=== PATIENT | male | born 1975 | race African-American/Black ===

== ENCOUNTER 2016-10-23 08:25 | Inpatient (IN) ==
[2016-10-23] MEDS ORDERED: SODIUM CHLORIDE 0.9% 1,000 ML IV STA (09:26)
[2016-10-23] MEDS ORDERED: INSULIN REGULAR 100 UNIT/ML IV STA (09:26)
[2016-10-23 09:40] LABS: Allen Test Positive; Pt O2 Delivery Device Room Air
[2016-10-23 09:42] LABS: ABG Base Excess -3.3 MMOL/L (-2.5-2.5); ABG HCO3 21.2 MMOL/L (20-26); ABG PH 7.377 (7.35-7.45); ABG PO2 78.1 MM HG (80-95); ABG TCO2 22.4 MMOL/L (23-27)
[2016-10-23] MEDS ORDERED: INSULIN REGULAR 100 UNIT/ML ONE (10:09)
[2016-10-23 10:15] LABS: Basophils % 0.2 % (0.0-0.8); Eosinophils # 0.1 10*3/uL (0.0-0.87); Eosinophils % 1.3 % (0.00-10.9); Hematocrit 43.3 VOL% (42.0-52.0); Hemoglobin 15.3 GM/DL (14.0-18.0); Immature Granulocytes % 0.6 %; Immature Granulocytes Absolute 0.03 #; Lymphocytes # 1.7 10*3/uL (1.4-4.0); Lymphocytes % 36.7 % (21.2-54.2); Mean Corpuscular HGB Conc 35.3 GM/DL (32-36); Mean Corpuscular Hemoglobin 32 PG (27-34); Mean Corpuscular Volume 89.1 FL (87-102); Mean Platelet Volume 11.7 FL (9.6-12.0); Monocytes # 0.3 10*3/uL (0.11-0.8); Monocytes % 7.1 % (1.7-12.7); Neutrophils # 2.5 10*3/uL (1.4-7.4); Neutrophils % 54.1 % (38.7-73.9); Platelet Count 194 T/CUMM (130-400); Red Blood Count 4.86 MC/CUMM (3.8-5.5); Red Cell Distribution Width 13.1 % (9.3-17.3); White Blood Count 4.7 T/CUMM (4-12)
[2016-10-23 10:18] LABS: Apearance,Urine CLEAR (Clear); Bilirubin,Urine Negative (Negative); Blood, Urine Negative (Negative); Glucose,Urine (UA) >=500 mg/dL (Negative); Ketones,Urine 20 mg/dL (Negative); Nitrite,Urine Negative (Negative); Protein,Urine 30 MG/DL; Urine Color Yellow (Yellow); Urine Specific Gravity 1.038 (1.001-1.035); Urine Urobilinogen < 2.0 EU/DL (0.2-1.0); WBC,Urine <1 /HPF (0-6)
--- NOTE | 2016-10-23 10:30 | Emergency Department Note ---
Dion Lawrence Brittany, am scribing for, and in the presence of, Jesica Sierra DO 09: 54. IRigo Debra, DO, personally performed the services described in this documentation, ascribed by Cherelle Ashley in my presence, and it is both accurate and complete . Arrival - Arrival Chief Complaint: Non-Specific Stated Complaint: Blood sugar 400 ED Nursing Triage Note: Patient to triage with c/o being thristy and frequent urination. Patients sister checked blood sugar at home and it was over 400. Patient does not have DM that he knows of. Patients blood sugar is 342 at time of tirage. Mode of Arrival: Ambulatory Limitations: No Limitations Source: Family - History of Present Illness HPI Narrative: This is a 41 y/o obese black male, who presents to the ED for further evaluation of possible diabetes. His sister states pt's Sx of polyuria and polydipsia have been ongoing for the past 1 week. He denies having a personal Hx of diabetes, but notes a family medical Hx of diabetes. His sister states she checked pt's BS while at home which was over 400. While in [facility], pt's BS was 342. Pt denies any fever, chills, chest pain, abdominal pain, or vomiting, but notes dizziness and nausea. Pt has no other complaints/pain in the ED at this time. Pt denies a PMHx. Pt denies a surgical Hx. Pt has a family medical Hx of diabetes. Pt denies the use of tobacco products and alcohol but uses marijuana. Onset (ago): week(s) (Started last week) Consistency: constant Severity: moderate Allergies/Adverse Reactions: Allergies Allergy/AdvReac Type Severity Reaction Status Date / Time No Known Allergies Allergy Unverified 10/23/16 08:37 Review of System - Review of System 12 point system: reviewed and no additional remarkable complaints except as stated - Review of System Constitutional: Absent: chills, fever Cardiovascular: Absent: chest pain Gastrointestinal: Present: nausea. Absent: abdominal pain, vomiting Neurological: Present: vertigo (Dizziness) Endocrine: Present: polydipsia, polyuria Medical,Surgical,& Family Hx - Family History Family History: Reports;: Family Diabetes - Social History Smoking Status: Smoker, status unknown Frequency of Alcohol Use: None Type of Drug Use: Marijuana Exam Vital Signs: Vital Signs Temperature 96.9 F L 10/23/16 08:45 Pulse Rate 97 H 10/23/16 08:45 Respiratory Rate 18 10/23/16 08:57 Blood Pressure 141/106 10/23/16 08:45 O2 Sat by Pulse Oximetry 97 10/23/16 08:33 - General General appearance: alert, in no apparent distress, obese - Head Head exam: Present: atraumatic, normocephalic, normal inspection - Eye Eye exam: Present: normal appearance, PERRL, EOMI. Absent: nystagmus - ENT ENT exam: Present: mucous membranes dry. Absent: mucous membranes moist - Neck Neck exam: Present: normal inspection, full ROM, trachea midline. Absent: tenderness - Chest Chest inspection: Present: normal inspection, symmetric chest wall rise. Absent : tenderness - Respiratory Respiratory exam: Present: normal lung sounds bilaterally. Absent: respiratory distress - Cardiovascular Cardiovascular exam: Present: regular rate, normal rhythm, normal heart sounds - Abdominal Exam Abdominal exam: Present: soft, normal bowel sounds. Absent: distention, tenderness, guarding, rebound, rigidity - Rectal Exam Rectal exam: Present: deferred - Extremities Exam Extremities exam: Present: normal inspection, full ROM, normal capillary refill. Absent: pedal edema, joint swelling - Back Exam Back exam: Present: normal inspection, full ROM. Absent: tenderness, muscle spasm, rashes - Neurological Exam Neurological exam: Present: alert, oriented X3, CN II-XII intact. Absent: motor sensory deficit - Psychiatric Psychiatric exam: Present: normal affect, normal mood. Absent: depressed, agitated, anxious, manic - Skin Skin exam: Present: warm, dry, intact, normal color. Absent: rash, cyanosis, diaphoresis, erythema, pallor, mottled Course Course Narrative: Spoke with Isa on the hospitalist service patient will be admitted for DKA. Awaiting blood sugar Accu-Cheks to determine whether or not we need to start on insulin drip. Patient was given 8 of insulin and a liter of fluids while awaiting labs Results - Labs CBC & BMP: 10/23/16 09:52 10/23/16 09:52 Lab Results: I have reviewed the patients labs Labs: Laboratory Tests 10/23/16 10/23/16 10/23/16 09:34 09:52 09:52 WBC 4.7 RBC 4.86 Hgb 15.3 Hct 43.3 MCV 89.1 MCH 32 MCHC 35.3 RDW 13.1 Plt Count 194 MPV 11.7 Neut % (Auto) 54.1 Lymph % (Auto) 36.7 [place] % (Auto) 7.1 Eos % (Auto) 1.3 Baso % (Auto) 0.2 Neut # (Auto) 2.5 Lymph # (Auto) 1.7 [place] # (Auto) 0.3 Eos # (Auto) 0.1 Baso # (Auto) 0.0 Immature Gran % 0.6 Nucleated RBC % 0.0 Immature Gran # 0.03 Nucleated RBCs # 0.00 Immature Plt Fraction 0.0 ABG pH 7.377 ABG pCO2 37.0 ABG pO2 78.1 L ABG HCO3 21.2 ABG Total CO2 22.4 L ABG O2 Saturation 96.0 ABG Base Excess -3.3 L FiO2 21.00 Sodium Potassium Chloride Carbon Dioxide Anion Gap BUN Creatinine GFR Calculation BUN/Creatinine Ratio Glucose Calculated Osmolality Calcium Total Bilirubin AST ALT Alkaline Phosphatase Total Protein Albumin Globulin Albumin/Globulin Ratio b-Hydroxybutyric mmol/L 0.9 H Urine Color Yellow Urine Appearance Clear Urine pH 5.0 Ur Specific [place] 1.038 H Urine Protein 30 Urine Glucose (UA) >=500 Urine Ketones 20 Urine Blood Negative Urine Nitrate Negative Urine Bilirubin Negative Urine Urobilinogen < 2.0 H Urine Leukocytes Negative Urine WBC <1 Ur Culture Indicated? Not indicated 10/23/16 09:52 WBC RBC Hgb Hct MCV MCH MCHC RDW Plt Count MPV Neut % (Auto) Lymph % (Auto) [place] % (Auto) Eos % (Auto) Baso % (Auto) Neut # (Auto) Lymph # (Auto) [place] # (Auto) Eos # (Auto) Baso # (Auto) Immature Gran % Nucleated RBC % Immature Gran # Nucleated RBCs # Immature Plt Fraction ABG pH ABG pCO2 ABG pO2 ABG HCO3 ABG Total CO2 ABG O2 Saturation ABG Base Excess FiO2 Sodium 133 L Potassium 4.1 Chloride 101 Carbon Dioxide 26 Anion Gap 10.1 BUN 11 Creatinine 1.20 GFR Calculation 139 BUN/Creatinine Ratio 9.00 Glucose 415 H Calculated Osmolality 282.4 Calcium 8.9 Total Bilirubin 0.60 AST 44 H ALT 53 Alkaline Phosphatase 168 H Total Protein 8.5 H Albumin 4.2 Globulin 4.3 H Albumin/Globulin Ratio 0.9 L b-Hydroxybutyric mmol/L Urine Color Urine Appearance Urine pH Ur Specific [place] Urine Protein Urine Glucose (UA) Urine Ketones Urine Blood Urine Nitrate Urine Bilirubin Urine Urobilinogen Urine Leukocytes Urine WBC Ur Culture Indicated? Disposition Clinical Impression: DKA (diabetic ketoacidoses), Hyperglycemia Case discussed with: patient, patient's family Disposition: Still a Patient Condition: Stable Time of Disposition: 11:00
[2016-10-23 10:50] LABS: Albumin 4.2 G/DL (3.4-5.0); Bilirubin,Total 0.6 MG/DL (0.2-1.0); Calcium 8.9 MG/DL (8.5-10.1); Osmolality,Calculated 282.4 MOS/KG (273-304); Potassium 4.1 MMOL/L (3.5-5.1); Total Protein 8.5 G/DL (6.4-8.3)
--- NOTE | 2016-10-23 11:47 | Hospitalist History & Physical ---
Assessment and Plan (1) Hyperglycemia Status: Acute Assessment and plan: Pt's blood sugar 415. Pt given IV insulin in ED. Accuchecks ACHS. SSI. Start patient on po agents. Consult diabetes educators. Diabetic diet. Stat A1c. Current Visit: Yes (2) Hypertension Status: Acute Assessment and plan: Monitored bed. Pt. will be start on po agent. Order hydralazine IV prn. Current Visit: Yes History of Present Illness Chief complaint: polyuria, polydipsia History of present illness: Mr. Chaves is a 41 year old black male with no known medical history that presented to the ED today for further evaluation of high blood sugar, frequent thirst, and frequent urination. Patient is accompanied by sister who is present at the bedside. Patient reports that for the last 2 weeks he has been experiencing polyuria and polydipsia. Patient also reports blurry vision, being dizzy and nauseous almost to the point of passing out. Patient denies fever, chills, chest pain, abdominal pain, or vomiting. Patient's sister states that after hearing his symptoms she decided that she would take his blood sugar. Pt' s blood sugar was over 400. Patient denies any diagnosis of diabetes but reports a family history. Pt. also denies alcohol or tobacco use but reports use of occasional marijuana. In ED patient's blood sugar was noted to be 342. Pt. was also found to be hypertensive. Pt will be admitted to the hospitalist service for further evaluation. Home Medications Medication Instructions Recorded Confirmed Type No Known Home Medications [No 10/23/16 10/23/16 History Known Home Medications] Allergies Allergy/AdvReac Type Severity Reaction Status Date / Time No Known Allergies Allergy Verified 10/23/16 11:33 Medical,Surgical,& Family Hx - Family History Family History: Reports;: Family Diabetes - Social History Smoking Status: Smoker, status unknown Frequency of Alcohol Use: None Type of Drug Use: Marijuana Marital Status: Single Lives With:: aunt Functional capacity: independent ambulation - Constitutional Constitutional: Absent: chills, fever(s), weakness - EENT Eyes: Present: blurry vision Ears: Absent: decreased hearing Nose, mouth and throat: Absent: dysphagia, headache(s) - Cardiovascular Cardiovascular: Absent: chest pain at rest, dyspnea, edema - Respiratory Respiratory: Absent: cough - Gastrointestinal Gastrointestinal: Present: nausea. Absent: abdominal pain, vomiting - Genitourinary Genitourinary: Present: urinary frequency. Absent: difficulty urinating, hematuria - Musculoskeletal Musculoskeletal: Absent: back pain - Neurological Neurological: Present: dizziness. Absent: confusion - Endocrine Endocrine: Present: fatigue, polydipsia, polyuria Exam - Constitutional Vitals: Period Temp Pulse Resp BP Sys/Bowers Pulse Ox Last 24 Hr 96.9 F-96.9 F 97-97 16-18 141-141/106-106 97 General appearance: no acute distress, morbidly obese - Head Head exam: Present: normal inspection, normocephalic - Eye Eye exam: Present: EOMI. Absent: scleral icterus Pupils: Present: ALYSSA - Neck Neck exam: Present: normal inspection - Respiratory Respiratory exam: Present: clear to auscultation bilaterally. Absent: wheezes - Cardiovascular Cardiovascular exam: Present: regular rate and rhythm - GI/Abdominal GI/Abdominal exam: Present: normal bowel sounds, soft. Absent: tenderness - Extremities Exam Extremities exam: Present: normal capillary refill, full ROM. Absent: edema - Neurological Exam Neurological exam: Present: alert, oriented X3 - Psychiatric Psychiatric exam: Present: normal affect, normal mood - Skin Skin exam: Present: normal color, warm, dry Results - Labs CBC & BMP: 10/23/16 09:52 10/23/16 09:52 Lab Results: I have reviewed the past 24 hour labs
[2016-10-23] MEDS ORDERED: SODIUM CHLORIDE 0.9% 1,000 ML IV ONE (11:50)
[2016-10-23] MEDS ORDERED: DEXTROSE 50% 25 GM/50 ML SYRINGE IV PRN (12:40)
[2016-10-23] MEDS ORDERED: GLUCAGON 1 MG VIAL IM PRN (12:40)
[2016-10-23] MEDS ORDERED: hydrALAZINE 25 MG TABLET PO PRN (12:40)
[2016-10-23] MEDS ORDERED: ACETAMINOPHEN 325 MG TABLET PO PRN (12:40)
[2016-10-23] MEDS ORDERED: ALBUTEROL 2.5 MG/3 ML NEB RESP TX PRN (12:40)
[2016-10-23] MEDS: SODIUM CHLORIDE 0.9% 1,000 ML IV SCH ×2 (14:25→20:15)
[2016-10-23] MEDS: LISINOPRIL/HCTZ 20-12.5 MG TABLET PO SCH (14:25)
[2016-10-23] MEDS: INSULIN LISPRO 100 UNIT/ML SUBCUT SCH ×2 (16:41→20:14)
[2016-10-23] MEDS: metFORMIN 500 MG TABLET PO SCH (16:42)
[2016-10-24 06:06] LABS: Basophils % 0.4 % (0.0-0.8); Eosinophils # 0.1 10*3/uL (0.0-0.87); Eosinophils % 1.2 % (0.00-10.9); Hematocrit 39.7 VOL% (42.0-52.0); Hemoglobin 13.8 GM/DL (14.0-18.0); Immature Granulocytes % 0.4 %; Immature Granulocytes Absolute 0.02 #; Lymphocytes # 2.4 10*3/uL (1.4-4.0); Lymphocytes % 43.1 % (21.2-54.2); Mean Corpuscular HGB Conc 34.8 GM/DL (32-36); Mean Corpuscular Hemoglobin 31 PG (27-34); Mean Corpuscular Volume 90.4 FL (87-102); Mean Platelet Volume 11.9 FL (9.6-12.0); Monocytes # 0.4 10*3/uL (0.11-0.8); Monocytes % 7.6 % (1.7-12.7); Neutrophils # 2.7 10*3/uL (1.4-7.4); Neutrophils % 47.3 % (38.7-73.9); Platelet Count 161 T/CUMM (130-400); Red Blood Count 4.39 MC/CUMM (3.8-5.5); Red Cell Distribution Width 13.3 % (9.3-17.3); White Blood Count 5.7 T/CUMM (4-12)
[2016-10-24] MEDS: SODIUM CHLORIDE 0.9% 1,000 ML IV SCH ×3 (06:10→20:07)
[2016-10-24 06:34] LABS: Albumin 3.6 G/DL (3.4-5.0); Bilirubin,Total 0.6 MG/DL (0.2-1.0); Potassium 4.4 MMOL/L (3.5-5.1); Risk Ratio 6.46; Thyroid Stimulating Hormone 1.23 uIU/ml (0.358-3.74); Total Protein 6.8 G/DL (6.4-8.3); VLDL CHOLESTEROL 120.8 MG/DL
[2016-10-24] MEDS: LISINOPRIL/HCTZ 20-12.5 MG TABLET PO SCH (09:06)
[2016-10-24] MEDS: metFORMIN 500 MG TABLET PO SCH ×2 (09:07→17:21)
[2016-10-24] MEDS: PANTOPRAZOLE 40 MG TABLET PO SCH (09:07)
[2016-10-24] MEDS: INSULIN LISPRO 100 UNIT/ML SUBCUT SCH ×4 (09:08→20:20)
--- NOTE | 2016-10-24 12:33 | Hospitalist Progress Note ---
Hospitalist: Subjective Interval history: 41-year-old male with new onset diabetes. Patient reports that his blurry vision, polyuria and polydipsia are better, but his sugars are still elevated. Exam - Constitutional Vitals: Period Temp Pulse Resp BP Sys/Bowers Pulse Ox Last 24 Hr 96.5 F-98.4 F 78-95 16-20 114-142/67-82 92-98 Results - Labs CBC & BMP: 10/24/16 05:02 10/24/16 05:02 Lab Results: I have reviewed the past 24 hour labs - Impressions New onset diabetes mellitus type 2 Status: Acute Assessment and plan: Patient is on metformin, Accu-Cheks are still running in 300s, he has been started on glyburide 10/24. Hemoglobin A1c was 10.6. He received diabetic education emphasis on proper diet, importance of taking medications and regular follow-ups with primary care physician. He states that he will find a primary care provider. We will continue to adjust his diabetes medications based on his Accu-Cheks. Current Visit: Yes Ess Hypertension Status: Acute Assessment and plan: Blood pressures quite well controlled on lisinopril and hydrochlorothiazide combination, will continue. Current Visit: Yes Hypertriglyceridemia Status: Acute Assessment and plan: Due to uncontrolled diabetes, started on fish oil 10/24 Current Visit: Yes Dehydration due to uncontrolled diabetes Status: Acute Assessment and plan: Continue IV fluids, this is improving. Current Visit: Yes Morbid obesity Status: Chronic Assessment and plan: Patient's BMI is 49. I have educated him regarding importance of exercise, losing weight and maintain his body weight around his ideal body weight 10/24 Current Visit: Yes
[2016-10-24] MEDS: glyBURIDE 5 MG TABLET PO SCH (17:17)
[2016-10-24] MEDS: OMEGA 3 ACID ETHYL ESTERS 1 GM CAPSULE PO SCH (20:21)
[2016-10-25 05:48] LABS: Basophils % 0.2 % (0.0-0.8); Eosinophils # 0.1 10*3/uL (0.0-0.87); Eosinophils % 1.3 % (0.00-10.9); Hematocrit 37.1 VOL% (42.0-52.0); Immature Granulocytes % 0.6 %; Immature Granulocytes Absolute 0.03 #; Lymphocytes # 1.8 10*3/uL (1.4-4.0); Mean Corpuscular Hemoglobin 32 PG (27-34); Mean Corpuscular Volume 90.5 FL (87-102); Mean Platelet Volume 11.9 FL (9.6-12.0); Monocytes # 0.4 10*3/uL (0.11-0.8); Monocytes % 7.7 % (1.7-12.7); Neutrophils # 2.4 10*3/uL (1.4-7.4); Neutrophils % 51.2 % (38.7-73.9); Platelet Count 154 T/CUMM (130-400); Red Cell Distribution Width 13.4 % (9.3-17.3); White Blood Count 4.7 T/CUMM (4-12)
[2016-10-25 06:17] LABS: Albumin 3.3 G/DL (3.4-5.0); Bilirubin,Total 0.7 MG/DL (0.2-1.0); Calcium 8.3 MG/DL (8.5-10.1); Osmolality,Calculated 278.8 MOS/KG (273-304); Potassium 4.5 MMOL/L (3.5-5.1); Total Protein 6.3 G/DL (6.4-8.3)
[2016-10-25] MEDS: OMEGA 3 ACID ETHYL ESTERS 1 GM CAPSULE PO SCH (09:27)
[2016-10-25] MEDS: LISINOPRIL/HCTZ 20-12.5 MG TABLET PO SCH (09:28)
[2016-10-25] MEDS: metFORMIN 500 MG TABLET PO SCH (09:28)
[2016-10-25] MEDS: PANTOPRAZOLE 40 MG TABLET PO SCH (09:28)
[2016-10-25] MEDS: glyBURIDE 5 MG TABLET PO SCH (09:28)
[2016-10-25] MEDS: INSULIN LISPRO 100 UNIT/ML SUBCUT SCH ×2 (09:29→13:02)
[2016-10-25] MEDS: SODIUM CHLORIDE 0.9% 1,000 ML IV SCH ×2 (11:05→13:01)
--- NOTE | 2016-10-25 11:50 | Discharge Summary ---
Hospital Course - Hospital Course Hospital Course: Mr. Chaves is a 41 year old black male with no known medical history that presented to the ED on 10/23 for further evaluation of high blood sugar, frequent thirst, and frequent urination. Patient reported that for the last 2 weeks he had been experiencing polyuria and polydipsia. Patient also reported blurry vision, being dizzy and nauseous almost to the point of passing out. Patient's sister took his blood sugar and it was over 400. In ED patient's blood sugar was noted to be 342. Pt. was also found to be hypertensive. Pt was admitted to the hospitalist service for further evaluation of treatment of new onset diabetes. Pt's blood sugars were treated with sliding scale insulins and po metformin. Pt. was also started on glyburide. Education was provided for smoking cessation. Pt's blood sugars improved. Elevated blood sugars were controlled. Pt. is stable to be discharged home. Pt. has been instructed on importance of securing PCP and following up within 1-2 weeks. - Time spent with patient Time with patient DS: Greater than 30 minutes Time spent discussing smoking cessation with patient: more than 10 minutes Diagnosis - Discharge Diagnosis (1) Hyperglycemia Status: Acute (2) Hypertension Status: Resolved Specialty Discharge - Follow Up or Referrals - Speciality Discharge Instructions Hospitalist Instructions: Please secure primary care provider. Follow up in 1-2 weeks for evaluation of diabetes. Discharge Plan - Discharge Data Disposition: Disch To Home/Self Care Condition at Discharge: Stable Discharge Diet: diabetic diet Activity: no restrictions, other (Pt. encouraged to exercise) Hygiene: no restrictions Weight Bearing at Discharge: full weight bearing Driving: no restrictions Contact your physician if you experience:: fever over 101, Difficulty voiding, Redness or swelling, Nausea/Vomiting, Shortness of breath - Discharge Medications No Action No Known Home Medications [No Known Home Medications] - Follow Up or Referral - Forms/Instructions Exam - Constitutional Vitals: Period Temp Pulse Resp BP Sys/Bowers Pulse Ox Last 24 Hr 96.7 F-97.7 F 80-85 18-21 118-133/76-87 96-100 General appearance: no acute distress, over weight - Head Head exam: Present: normal inspection, normocephalic - Eye Eye exam: Present: EOMI Pupils: Present: ALYSSA - Neck Neck exam: Present: normal inspection - Respiratory Respiratory exam: Present: clear to auscultation bilaterally. Absent: wheezes - Cardiovascular Cardiovascular exam: Present: regular rate and rhythm - GI/Abdominal GI/Abdominal exam: Present: normal bowel sounds, soft. Absent: tenderness - Extremities Exam Extremities exam: Present: normal capillary refill, full ROM, edema - Neurological Exam Neurological exam: Present: alert, oriented X3 - Psychiatric Psychiatric exam: Present: normal affect, normal mood - Skin Skin exam: Present: normal color, warm, dry Discharge Results Labs on day of discharge: Labs from last 24 hours 10/25/16 10/25/16 10/25/16 11:24 07:18 05:11 WBC RBC Hgb Hct MCV MCH MCHC RDW Plt Count MPV Neut % (Auto) Lymph % (Auto) [place] % (Auto) Eos % (Auto) Baso % (Auto) Neut # (Auto) Lymph # (Auto) [place] # (Auto) Eos # (Auto) Baso # (Auto) Immature Gran % Nucleated RBC % Immature Gran # Nucleated RBCs # Immature Plt Fraction Sodium 137 Potassium 4.5 Chloride 105 Carbon Dioxide 26 Anion Gap 10.5 BUN 8 Creatinine 0.90 GFR Calculation 197 BUN/Creatinine Ratio 8.00 Glucose 251 H POC Glucose 314 H 281 H Calculated Osmolality 278.8 Calcium 8.3 L Total Bilirubin 0.70 AST 30 ALT 35 Alkaline Phosphatase 118 H Total Protein 6.3 L Albumin 3.3 L Globulin 3.0 Albumin/Globulin Ratio 1.1 10/25/16 10/24/16 10/24/16 05:11 20:06 16:32 WBC 4.7 RBC 4.10 Hgb 13.0 L Hct 37.1 L MCV 90.5 MCH 32 MCHC 35.0 RDW 13.4 Plt Count 154 MPV 11.9 Neut % (Auto) 51.2 Lymph % (Auto) 39.0 [place] % (Auto) 7.7 Eos % (Auto) 1.3 Baso % (Auto) 0.2 Neut # (Auto) 2.4 Lymph # (Auto) 1.8 [place] # (Auto) 0.4 Eos # (Auto) 0.1 Baso # (Auto) 0.0 Immature Gran % 0.6 Nucleated RBC % 0.0 Immature Gran # 0.03 Nucleated RBCs # 0.00 Immature Plt Fraction 0.0 Sodium Potassium Chloride Carbon Dioxide Anion Gap BUN Creatinine GFR Calculation BUN/Creatinine Ratio Glucose POC Glucose 302 H 324 H Calculated Osmolality Calcium Total Bilirubin AST ALT Alkaline Phosphatase Total Protein Albumin Globulin Albumin/Globulin Ratio 10/24/16 11:38 WBC RBC Hgb Hct MCV MCH MCHC RDW Plt Count MPV Neut % (Auto) Lymph % (Auto) [place] % (Auto) Eos % (Auto) Baso % (Auto) Neut # (Auto) Lymph # (Auto) [place] # (Auto) Eos # (Auto) Baso # (Auto) Immature Gran % Nucleated RBC % Immature Gran # Nucleated RBCs # Immature Plt Fraction Sodium Potassium Chloride Carbon Dioxide Anion Gap BUN Creatinine GFR Calculation BUN/Creatinine Ratio Glucose POC Glucose 297 H Calculated Osmolality Calcium Total Bilirubin AST ALT Alkaline Phosphatase Total Protein Albumin Globulin Albumin/Globulin Ratio DS: Provider Date of admission: 10/23/16 11:01 Primary care physician: . No PCP Attending physician on admission: Rama Perkins MD Consults: 10/23/16 12:40 Consult to [facility], Educator [CONS] Routine Reason for Insole Beveler: Diabetes Education Consult to [facility], Educator [CONS] Routine Reason for Insole Beveler: Other Consult Comment: new diabetic 10/24/16 09:32 Consult to [facility], Educator [CONS] Routine Reason for Insole Beveler: Diabetes Education Discharging clinician: Alejandro Ledesma NP
[2016-10-25 12:25] VITALS: BP 102/69
== END 2016-10-25 15:20 | disposition home or self-care (01) | DRG 638 ==
LOC: N.ED 08:25 → SUATTDRO 11:01 → N.EDINP 11:01 → N.CC 11:56 → N.4E 12:38
PROVIDERS: ADMIT Internal Medicine; ATTEND Hospitalist